=== PATIENT | male | born 1965 | race Caucasian/White ===

== ENCOUNTER 2016-08-22 14:11 | Emergency (ER) | payer OTHER ==
--- NOTE | ~2016-08-22 | CR72 ---
[facility]. [facility] A Service of [facility] & [facility] RADIOLOGY TEXT RESULTS PATIENT: DANIA SMITH LOCATION: SED : 69 UNIT #: [id number] AGE: [address]: Shelton Pro MD SEX: M ORDER DR: [id number] [place] [id number] MR#: [id number] Acc #: [id number] NAME: DANIA SMITH : 1965 SEX: M STUDY DATE/TIME: 08/22/2016 15:12 UNIT: SED ROOM: STUDY DESCRIPTION: CR Chest Single View Portable Attending Physician: Shelton Pro M.D. Ordering Physician: Shelton Pro M.D. Primary Care Physician: Primary Care Physician No MEDICAL IMAGING REPORT This report is preliminary unless electronic signature is present. EXAM Single view of the chest dated 08/22/2016. COMPARISON None. HISTORY Drug overdose today. Patient passed out in car. FINDINGS Single frontal view of the chest was obtained. A single AP portable view of the chest shows both lungs to be clear. The heart is normal in size. The mediastinal contour is normal. No significant bone abnormalities are seen. IMPRESSION Normal portable chest. Dictated by... Renard Orozco M.D. THIS IS AN ELECTRONICALLY VERIFIED REPORT Renard Orozco M.D. at 08/23/2016 8:43 PM CPR/psc TD: 08/23/2016 00:27 JOB #: [id number] MEDICAL IMAGING REPORT Page 1 of 1
--- NOTE | ~2016-08-22 | EKG ---
PATIENT: DANIA SMITH UNIT #: [id number] Ventricular Rate: 111 BPM Atrial Rate: 111 BPM P-R Interval: 172 ms QRS Duration: 110 ms Q-T Interval: 352 ms QTC Calculation(Bezet): 478 ms P Prather: 40 degrees Calculated R Prather: -15 degrees Calculated T Prather: 106 degrees Diagnosis Line: Sinus tachycardia Diagnosis Line: Left ventricular hypertrophy with repolarization Diagnosis Line: abnormality Diagnosis Line: Cannot rule out Septal infarct , age undetermined Diagnosis Line: Abnormal ECG Diagnosis Line: No previous ECGs available Diagnosis Line: Confirmed by REYNA HENNESSY MD ([id number]) on Diagnosis Line: 08/25/2016 8:30:48 AM INTERPRETING MD: MINOO RUBI
[~2016-08-22 14:11] MED LIST: INVOKANA300 MG PO; LISINOPRIL20 MG PO; METFORMIN HCL1000 M1 PO
[2016-08-22 14:43] LABS: BASOPHIL# 0.1 X10e3 (0-0.3); BASOPHIL% 0.8 % (0-2.5); EOSINOPHIL# 0.2 X10e3 (0-0.7); EOSINOPHIL% 2.6 % (0.0-7.0); HEMOGLOBIN 15.3 gm/dL (13.0-16.0); LYMPHOCYTE# 3.4 X10e3 (1.0-3.5); LYMPHOCYTE% 38.2 % (17.0-45.0); MEAN CELL VOLUME 89.6 FL (83-96); MEAN CORPUSCULAR HEMOGLOBIN 31.1 PG (28-34); MEAN CORPUSCULAR HGB CONC 34.7 g/dL (30-36); MEAN PLATELET VOLUME 7.8 FL (6.5-11.5); MONOCYTE# 0.7 X10e3 (0-1.0); MONOCYTE% 7.6 % (3.0-12.0); NEUTROPHIL# 4.5 X10e3 (1.5-7.1); NEUTROPHIL% 50.8 % (40-75); PLATELET COUNT 263 X10e3 (140-420); RED BLOOD COUNT 4.91 X10e (3.90-5.60); RED CELL DISTRIBUTION WIDTH 12.4 % (11.0-15.5); WHITE BLOOD COUNT 8.8 X10e3 (4.0-10.5)
[2016-08-22 14:45] LABS: DIFF IND NO
[2016-08-22 14:52] LABS: POC - CKMB 1.1 ng/mL (0.0-7.9); POC - TROPONIN <0.05 ng/mL (<=0.05)
[2016-08-22 15:03] LABS: ALBUMIN SERUM 4.6 g/dL (3.5-5.0); ALKALINE PHOSPHATASE 62 U/L (32-92); ALT (SGPT) 44 U/L (10-40); AST (SGOT) 34 U/L (10-42); BILIRUBIN, DIRECT 0.1 mg/dL (0.0-0.2); BILIRUBIN,INDIRECT 0.3 mg/dL (0.0-0.9); BILIRUBIN,TOTAL 0.4 mg/dL (0.2-2.0); BLOOD UREA NITROGEN 21 mg/dL (9-23); CALCIUM SERUM 9.3 mg/dL (8.4-10.2); CARBON DIOXIDE 27 mmol/L (22-31); CHLORIDE 101 mmol/L (100-111); GLOM FILT RATE Estimated 88.6 mL/min (>60); GLUCOSE FASTING 401 mg/dL (70-110); POTASSIUM 3.3 mmol/L (3.5-5.1); PROTEIN TOTAL SERUM 7.6 g/dL (6.0-8.3); SALICYLATE <4.0 mg/dL; SODIUM 137 mmol/L (135-145)
[2016-08-22 15:07] LABS: ACETAMINOPHEN <10 ug/mL; ALCOHOL BLOOD <5 mg/dL (0)
[2016-08-22 15:25] LABS: AMPHETAMINE NEG (NEG); BARBITURATES NEG (NEG); BENZODIAZEPINES NEG (NEG); COCAINE NEG (NEG); MARIJUANA NEG (NEG); OPIATES POS (NEG); TRICYCLIC ANTIDEPRESSANTS NEG (NEG); U METHADONE NEG (NEG)
[2016-08-22 16:07] LABS: URINE SOURCE CLEAN CATCH
[2016-08-22 16:09] LABS: URINE APPEARANCE CLEAR; URINE BILIRUBIN NEG (NEG); URINE BLOOD NEG (NEG); URINE COLOR YELLOW; URINE GLUCOSE 300 MG/DL (NORM); URINE KETONE NEG (NEG); URINE LEUKOCYTE ESTERASE NEG (NEG); URINE NITRATE NEG (NEG); URINE PH 5.5 (5-8); URINE UROBILINOGEN 0.2 MG/DL (NORM)
[2016-08-22 16:20] LABS: MICRO INDICATED? YES; URINE PROTEIN TRACE (NEG)
[2016-08-22 16:32] LABS: CULTURE INDICATED? NO; URINE BACTERIA NEG (NEG); URINE RBC 0-2 /[HPF] (0-2); URINE WBC 0-2 /[HPF] (0-5)
[2016-08-22 16:47] LABS: POC - TROPONIN <0.05 ng/mL (<=0.05)
== END 2016-08-22 17:00 | disposition home or self-care (01) ==
LOC: SED 14:11
PROVIDERS: Emergency Medicine
DX: T67.5XXA Heat exhaustion, unspecified, initial encounter (principal); F11.20 Opioid dependence, uncomplicated; E11.65 Type 2 diabetes mellitus with hyperglycemia; I10 Essential (primary) hypertension
CPT/HCPCS: 36415; 71010; 80048; 80076; 80307; 81003; 82553; 82947; 84484; 85025; 93005; 96361; 96374; 99284; G0480